=== PATIENT | male | born 1940 | race Caucasian/White ===

== ENCOUNTER 2023-10-11 08:17 | Emergency (ER) | payer MEDICARE, OTHER, SELFPAY ==
[2023-10-11] VITALS (11 sets, daily range): BP systolic 149–187; BP diastolic 68–90; PULSE 66–72; RESP 16–24; TEMP 36.5–37; O2SAT 96–99; BMI 25.8
--- NOTE | 2023-10-11 08:29 | ED.GENADULT ---
HPI - General Adult General Chief complaint: Dizziness Stated complaint: lost balance twice Time Seen by Provider: 10/11/23 08:23 History of Present Illness HPI narrative: 82-year-old male with history of hypertension, BPH presents by private vehicle from home for lightheaded sensation and an off-balance feeling earlier this morning. Patient states that he woke up at approximately 1:30 a.m. this morning and felt like everything was spinning and he was off balance. He went back to bed, but when he woke up this morning he felt lightheaded and like he was ?out of it. He decided to present for evaluation. at bedside states that patient has speech, gait, mannerisms all appear to be normal to her. Related Data Home Medications Medication Instructions Recorded Confirmed famotidine 20 mg tablet 20 mg PO ONCE PM 10/11/23 10/11/23 finasteride 5 mg tablet 5 mg PO DAILY 10/11/23 10/11/23 losartan 100 mg tablet 100 mg PO DAILY 10/11/23 10/11/23 lovastatin 20 mg tablet 20 mg PO QPM 10/11/23 10/11/23 omeprazole 10 mg capsule,delayed 10 mg PO DAILY 10/11/23 10/11/23 release trazodone 50 mg tablet 50 mg PO ONCE PM 10/11/23 10/11/23 Previous Rx's Medication Instructions Recorded aspirin 81 mg capsule 81 mg PO DAILY #30 caps 10/11/23 clopidogrel 75 mg tablet (Plavix) 75 mg PO DAILY #21 tabs 10/11/23 Allergies Allergy/AdvReac Type Severity Reaction Status Date / Time amoxicillin [From Augmentin] Allergy Verified 10/11/23 08:30 clavulanic acid Allergy Verified 10/11/23 08:30 [From Augmentin] Penicillins Allergy Verified 10/11/23 08:30 Review of Systems Review of Systems Narrative: Negative except as noted above Patient History Social History Smoking Status: Former smoker Exam Initial Vital Signs Initial Vital Signs: Vital Signs Pulse Rate 72 10/11/23 08:30 Respiratory Rate 18 10/11/23 08:30 Blood Pressure 184/87 H 10/11/23 08:30 Pulse Oximetry 99 10/11/23 08:30 Oxygen Delivery Method Room Air 10/11/23 08:30 Const: Awake, alert, no acute distress, nontoxic appearing Eyes: PERRL, EOMI, conjunctiva normal ENT: Atraumatic, dentition normal, mucous membranes moist, right-sided cochlear implant Cardiac: regular rate, regular rhythm RESP: unlabored, clear bilaterally, no wheezing GI: Atraumatic, soft, nontender, nondistended, no rebound, no guarding MSK: Atraumatic, full range of motion, pulses equal Skin: Warm, Dry, intact, no rashes Neuro: AO x3, CN II-XII grossly intact, no sensory deficit, no motor deficits, gait normal, coordination normal Psych: affect normal, mood normal, not suicidal, not homicidal Course Orders Ordered: ED Orders 10/11/23 08:34 CBC Auto Diff [Complete Blood Count AUTO DIFF] Stat CMP [Comprehensive Metabolic Panel] Stat MAG [Magnesium] Stat Troponin & CK Cardiac Panel Stat 10/11/23 08:43 CT head/brain wo con Stat Chest [XR chest 1V] Stat 10/11/23 09:25 UA Complete [Urinalysis and Microscopic] Stat 10/11/23 09:37 CT angio head and neck Stat EKG-12 Lead Stat Vital Signs Vital signs: Vital Signs - 8 hr 10/11/23 08:30 10/11/23 08:37 10/11/23 08:37 Temperature 97.7 F Pulse Rate 72 68 Respiratory Rate 18 19 Blood Pressure 184/87 H Pulse Oximetry 99 97 Oxygen Delivery Method Room Air 10/11/23 08:37 10/11/23 08:59 10/11/23 08:59 Temperature Pulse Rate 70 Respiratory Rate 24 Blood Pressure 187/82 H 149/68 H Pulse Oximetry 97 Oxygen Delivery Method 10/11/23 09:00 10/11/23 09:01 10/11/23 09:01 Temperature Pulse Rate 67 67 Respiratory Rate 23 24 Blood Pressure 185/74 H Pulse Oximetry 97 96 Oxygen Delivery Method 10/11/23 09:30 10/11/23 09:30 10/11/23 09:53 Temperature Pulse Rate 66 70 Respiratory Rate 20 19 Blood Pressure 156/73 H Pulse Oximetry 97 97 Oxygen Delivery Method 10/11/23 09:53 10/11/23 10:00 10/11/23 10:00 Temperature Pulse Rate 67 Respiratory Rate Blood Pressure 164/90 H 158/73 H Pulse Oximetry 98 Oxygen Delivery Method 10/11/23 10:30 10/11/23 10:30 10/11/23 10:55 Temperature Pulse Rate 67 67 Respiratory Rate 22 16 Blood Pressure 152/77 H Pulse Oximetry 98 97 Oxygen Delivery Method 10/11/23 10:55 10/11/23 11:44 Temperature 98.6 F Pulse Rate 69 Respiratory Rate 24 Blood Pressure 155/79 H 168/86 H Pulse Oximetry 97 Oxygen Delivery Method Room Air Medical Decision Making Differential Diagnosis Differential Diagnosis: TIA, CVA, vertigo Lab Data 10/11/23 08:34 10/11/23 08:34 Labs: Lab Results 10/11/23 10/11/23 Range/Units 08:34 09:25 WBC 11.1 H (4.5-11.0) X10^3/uL RBC 4.80 (4.5-5.9) X10^6/uL Hgb 15.2 (13.5-17.5) g/dL Hct 44.9 (41-53) % MCV 93.7 (80-100) fL MCH 31.6 (26-34) PG MCHC 33.8 (30-36) % RDW 14.0 (11.6-14.8) % Plt Count 407 H (150-400) X10^3/uL Neut % (Auto) 65.9 (50-75) % Lymph % (Auto) 20.7 L (25-40) % [place] % (Auto) 10.8 (3-14) % Eos % (Auto) 2.0 (2-4) % Baso % (Auto) 0.6 (0-2) % Neut # (Auto) 7300 H (4322-9804) /uL Lymph # (Auto) 2300 (4750-1573) /uL [place] # (Auto) 1200 H (0-900) /uL Eos # (Auto) 200 (0-450) /uL Baso # (Auto) 100 (0-100) /uL Sodium 134 L (137-145) mmol/L Potassium 4.3 (3.4-5.1) mmol/L Chloride 101 (98-107) mmol/L Carbon Dioxide 25 (22-32) mmol/L BUN 13 (9-20) mg/dL Creatinine 0.77 (0.66-1.25) mg/dL Estimated GFR > 60 (>60) mL/min BUN/Creatinine Ratio 16.9 (6-22) Glucose 111 H (80-110) mg/dL Calcium 9.5 (8.4-10.2) mg/dL Magnesium 2.0 (1.6-2.3) mg/dL Total Bilirubin 1.1 (0.2-1.3) mg/dL AST 32 (17-59) IU/L ALT 24 (<50) IU/L Alkaline Phosphatase 79 (38-126) U/L Total Creatine Kinase 73 (55-170) U/L Troponin I < 0.012 (0.01-0.034) ng/mL Total Protein 7.4 (6.3-8.2) g/dL Albumin 4.3 (3.5-5.0) g/dL Globulin 3.1 (1.7-4.1) g/dL Albumin/Globulin Ratio 1.4 (1.0-2.8) Urine Color Yellow Urine Appearance Clear Urine pH 7.5 (4.5-8.0) Ur Specific [place] 1.015 (1.000-1.035) Urine Protein Negative (Negative) Urine Glucose (UA) Negative (Negative) g/dL Urine Ketones Negative (NEGATIVE) Urine Occult Blood Negative (Negative) Urine Nitrate Negative (Negative) Urine Bilirubin Negative (NEGATIVE) Urine Urobilinogen 0.2 (0.2) E.U./dL Ur Leukocyte Esterase Negative (NEGATIVE) Urine RBC None seen (0-5/HPF) Urine WBC None seen (0-5/HPF) Ur Squamous Epith Cells 0-1 /hpf (0-5/HPF) Urine Bacteria None seen (None) Ur Culture Indicated? Cult not indicated MDM Narrative Medical decision making narrative: Patient with vertigo episode earlier this morning and altered feeling today. On my evaluation patient's NIH is 0, his gait is intact, coordination intact, no focal neurologic deficit. We will order labs and CT scan. Laboratory work is reviewed, no acute abnormalities identified. Patient resting comfortably in ED bed reading a book. Noncontrast CT of the brain is concerning for possible subacute to chronic infarct in the left thalamic region, however there is noted to be artifact from cochlear implant. We will order CT angio. CT angio shows less than 50% stenosis of the bilateral internal carotid arteries. There is noted to be long segment stenosis of the left common carotid artery. Discussed findings with radiologist. Based on patient's clinical picture and exam there does not appear to be an acute infarct, and obtaining an MRI would be very difficult due to cochlear implant. Patient states that his cochlear implant is MRI compatible, however radiologist states that there will be a lot of metallic artifact throughout the picture and it would not be helpful especially given the patient's reported symptoms. Patient and informed of all lab and imaging findings. Patient continues to feel asymptomatic in the exam room. He states that he is a follow up appointment with his primary care physician within a week and we will discuss further planning at that time. In the interim patient to be started on daily aspirin and Plavix. ED return precautions discussed at bedside. Patient expressed understanding of the plan and is in agreement at this time. All questions answered at the time of discharge. Discharge Plan Departure Patient Disposition: Home Clinical Impression: Dizziness Instructions: DI for Dizziness-Nonvertigo Activity Restrictions/Additional Instructions: Your laboratory work today was normal, your brain CT indicated that at some point you may have had a small stroke on the left side of your brain. Today we are unable to get an MRI due to scatter artifact from the cochlear implant. Take aspirin and Plavix every day for 3 weeks, and then continue just baby aspirin daily. I recommend following up with a neurologist. MPRESSION: 1. Small area of hypoattenuation in the left thalamus/posterior limb of the left internal capsule is suspicious for a small subacute to chronic infarct, although streak artifact is present at this level and artifactual hypoattenuation cannot be entirely excluded. Recommend correlation with clinical symptoms and any prior imaging if available. 2. Mild chronic microvascular ischemic changes. 3. Right cochlear implant. IMPRESSION: 1. CTA head demonstrates no focal filling defect or stenosis or occlusion or aneurysm. 2. Normal variant anatomy in which the distal left vertebral artery is diminutive, the basilar artery is fairly diminutive, and both posterior cerebral arteries arise as origins off the anterior circulation. 3. The bilateral internal carotid arteries have proximal stenosis secondary to soft plaque, which by NASCET criteria are less than 50%. 4. 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 The appearance of both the left common carotid and internal carotid artery may indicate remote thrombosed dissection or plaque from atherosclerosis. Prescriptions: New aspirin 81 mg capsule 81 mg PO DAILY Qty: 30 0RF clopidogrel [Plavix] 75 mg tablet 75 mg PO DAILY Qty: 21 0RF No Action famotidine 20 mg tablet 20 mg PO ONCE PM aristeodone 50 mg tablet 50 mg PO ONCE PM omeprazole 10 mg capsule,delayed release(DR/EC) 10 mg PO DAILY lovastatin 20 mg tablet 20 mg PO QPM losartan 100 mg tablet 100 mg PO DAILY finasteride 5 mg tablet 5 mg PO DAILY Referrals: Miscellaneous,Doctor, MD [Primary Care Provider] - Stand Alone Forms: Patient Portal/API
--- NOTE | 2023-10-11 08:40 | PC.NURSE ---
Pt reports going to bed last night around 2100 last night and feeling normal. Awoke to use the restroom at approximately 0100 and felt dizzy, lightheaded and off balance. Pt went back to bed, woke up this morning and still felt off. confirmed timeline. FAST negative. Pt a&ox4. [employer] intact. Pt denies cp, sob, fever, n/v/d. Denies pain. Pt ambulated with steady gait and answers all questions appropriately. Dr Menon at beside during triage.
--- NOTE | 2023-10-11 08:43 | DI.RAD.S_ITS ---
PROCEDURE: XR CHEST 1V INDICATIONS: LIGHTHEADEDNESS/GEN WEAKNESS TECHNIQUE: One view of the chest was acquired. COMPARISON: None. FINDINGS: Surgical changes and devices: None. Lungs and pleura: Lungs are clear. No pleural effusions or pneumothorax. Mediastinum: Mediastinal contours appear normal. Heart size is normal. Bones and chest wall: No suspicious bony lesions. Overlying soft tissues appear unremarkable. IMPRESSION: No evidence acute pulmonary process. Dictated by: Arjun Umaña M.D. on 10/11/2023 at 9:05 Approved by: Arjun Umaña M.D. on 10/11/2023 at 9:05
--- NOTE | 2023-10-11 08:43 | DI.CT.S_ITS ---
PROCEDURE: CT HEAD/BRAIN WO CON INDICATIONS: OFF-BALANCE AT 1:30AM TECHNIQUE: Noncontrast 4.5 mm thick angled axial sections acquired from the foramen magnum to the vertex, with coronal and sagittal reformats. For radiation dose reduction, the following was used: automated exposure control, adjustment of mA and/or kV according to patient size. COMPARISON: None. FINDINGS: Image quality: Images are mildly degraded by streak artifact related to a right cochlear implant. CSF spaces: Basal cisterns are patent. No extra-axial fluid collections. The ventricles are symmetric in size and shape. Brain: No acute intracranial hemorrhage or mass effect. Subtle hypoattenuating area is seen in the region of the left thalamus and left posterior internal capsule that could represent a subacute infarct. There is mild cerebral volume loss for age, with resultant ventricular and sulcal prominence. There are mild periventricular and deep white matter chronic small vessel ischemic changes. There is intracranial internal carotid artery atherosclerosis. Skull and face: Calvarium and visualized facial bones appear intact, without suspicious lesions. Sinuses: The visualized paranasal sinuses are clear. Postsurgical changes in the right mastoid region. The mastoid air cells are otherwise clear bilaterally. IMPRESSION: 1. Small area of hypoattenuation in the left thalamus/posterior limb of the left internal capsule is suspicious for a small subacute to chronic infarct, although streak artifact is present at this level and artifactual hypoattenuation cannot be entirely excluded. Recommend correlation with clinical symptoms and any prior imaging if available. 2. Mild chronic microvascular ischemic changes. 3. Right cochlear implant. Approved by: Zeferino Manzo M.D. on 10/11/2023 at 9:24
[2023-10-11 08:57] LABS: Add Manual Diff / Slide Review NO; Basophils Absolute Auto 100 /uL (0-100); Basophils Percent Auto 0.6 % (0-2); Eosinophils Absolute Auto 200 /uL (0-450); Hematocrit 44.9 % (41-53); Hemoglobin 15.2 g/dL (13.5-17.5); Lymphocytes Absolute Auto 2300 /uL (1100-4500); Lymphocytes Percent Auto 20.7 % (25-40); Mean Corpuscular HGB Conc 33.8 % (30-36); Mean Corpuscular Hemoglobin 31.6 PG (26-34); Mean Corpuscular Volume 93.7 fL (80-100); Monocytes Absolute Auto 1200 /uL (0-900); Monocytes Percent Auto 10.8 % (3-14); Neutrophils Absolute Auto 7300 /uL (1500-7000); Neutrophils Percent Auto 65.9 % (50-75); Platelet Count 407 X10^3/uL (150-400); White Blood Cell Count 11.1 X10^3/uL (4.5-11.0)
[2023-10-11 09:04] LABS: Alanine Aminotransferase 24 IU/L (<50); Albumin 4.3 g/dL (3.5-5.0); Albumin Globulin Ratio 1.4 (1.0-2.8); Alkaline Phosphatase 79 U/L (38-126); Aspartate Aminotransferase 32 IU/L (17-59); BUN Creatinine Ratio 16.9 (6-22); Bilirubin Total 1.1 mg/dL (0.2-1.3); Blood Urea Nitrogen 13 mg/dL (9-20); Calcium 9.5 mg/dL (8.4-10.2); Carbon Dioxide 25 mmol/L (22-32); Chloride 101 mmol/L (98-107); Creatine Kinase 73 U/L (55-170); Estimated Glomerular Filt Rate > 60 mL/min (>60); Globulin 3.1 g/dL (1.7-4.1); Glucose 111 mg/dL (80-110); HEMOLYSIS < 15 (0-50); Potassium 4.3 mmol/L (3.4-5.1); Sodium 134 mmol/L (137-145); Total Protein 7.4 g/dL (6.3-8.2)
[2023-10-11 09:15] LABS: Troponin I < 0.012 ng/mL (0.01-0.034)
--- NOTE | 2023-10-11 09:37 | DI.CT.S_ITS ---
PROCEDURE: CT ANGIO HEAD AND NECK INDICATIONS: POSS Left INFARCT, HEAD/NECK EVAL TECHNIQUE: After the administration of intravenous contrast, 1 mm thick sections acquired from the aortic arch through the [place]. 3-dimensional lnbdcst-ixarcrzpm-cddwvwowge (MIP) and/or volume rendering reformats were acquired of the central intracranial vasculature and neck separately. For radiation dose reduction, the following was used: automated exposure control, adjustment of mA and/or kV according to patient size. COMPARISON: [facility], CT, CT HEAD/BRAIN WO [facility], 10/11/2023, 8:52. FINDINGS: Image quality: Diagnostic. BRAIN: CSF spaces: Ventricles are normal in size and shape. Basal cisterns are patent. No extra-axial fluid collections. Brain: No significant abnormality of the brain can be seen. Skull and face: Calvarium and facial bones appear intact, without suspicious lesions. Orbits appear normal. Sinuses: Sinuses and mastoids are clear. HEAD CT ANGIOGRAPHY: Anterior circulation: Intracranial internal carotid arteries are normal in size and flow. The flow within the paired anterior cerebral arteries is normal and symmetric. The flow within the middle cerebral arteries is normal and symmetric. The anterior communicating artery is seen. No aneurysms are seen. Posterior circulation: Diminutive V4 segment of the left vertebral artery. Right vertebral artery is dominant. The basilar artery is a fairly diminutive vessel secondary to the presence of bilateral origins of the posterior cerebral arteries off the anterior circulation. Flow within the posterior cerebral arteries is normal and symmetric. No aneurysms are seen. NECK CT ANGIOGRAPHY: Carotid system: The great vessels demonstrate a conventional anatomy as they arise from the aortic arch. The origins of the common carotid arteries appear patent. There is a fairly long segment less than or equal to 50% stenosis of the left common carotid artery with soft plaque. The bifurcation regions are both widely patent. There is soft plaque present in the proximal left internal carotid artery which narrows the cross-sectional area by greater than 60%. However, by NASCET criteria, the stenosis is less than 50%. There is soft plaque in the proximal left internal carotid artery which is definitely less than 50%. There is also soft plaque in the left common carotid artery which results in a stenosis of in the neighborhood of 50% by cross-sectional area. Based on the appearance of the left common carotid and internal carotid arteries, cannot exclude remote thrombosed dissection. Posterior circulation: The proximal bilateral vertebral arteries are patent. The right vertebral artery is somewhat dominant. The distal left vertebral artery is diminutive. The basilar artery is diffusely small, secondary to origin of the bilateral posterior cerebral arteries off the anterior circulation. Soft tissues: Visualized neck soft tissues demonstrate no suspicious abnormalities. Bones: No suspicious bony lesions. Visualized cervical spine appears normally aligned. IMPRESSION: 1. CTA head demonstrates no focal filling defect or stenosis or occlusion or aneurysm. 2. Normal variant anatomy in which the distal left vertebral artery is diminutive, the basilar artery is fairly diminutive, and both posterior cerebral arteries arise as origins off the anterior circulation. 3. The bilateral internal carotid arteries have proximal stenosis secondary to soft plaque, which by NASCET criteria are less than 50%. 4. 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 The appearance of both the left common carotid and internal carotid artery may indicate remote thrombosed dissection or plaque from atherosclerosis. Comment: If suspect acute infarct, recommend brain MRI. Any quantitative measurements of stenosis were performed using NASCET criteria. Dictated by: Arjun Umaña M.D. on 10/11/2023 at 10:11 Approved by: Arjun Umaña M.D. on 10/11/2023 at 10:27
[2023-10-11 09:39] LABS: Appearance Urine UA CLEAR; Bilirubin Urine UA NEGATIVE (NEGATIVE); Color Urine UA YELLOW; Glucose Urine UA NEGATIVE (Negative); Ketones Urine UA NEGATIVE (NEGATIVE); Leukocyte Esterase Urine UA NEGATIVE (NEGATIVE); Nitrite Urine UA NEGATIVE (Negative); Occult Blood Urine UA NEGATIVE (Negative); Protein Urine UA NEGATIVE (Negative); Specific Gravity Urine UA 1.015 (1.000-1.035); Urobilinogen Urine UA 0.2 E.U./dL (0.2); pH Urine UA 7.5 (4.5-8.0)
[2023-10-11 09:52] LABS: RBC Urine None Seen (0-5/HPF)
[2023-10-11 09:53] LABS: Bacteria Urine None Seen; Culture Indicated Urine Cult Not Indicated; Squamous Epithelial Cell Urine 0-1 /HPF (0-5/HPF); WBC Urine None Seen (0-5/HPF)
== END 2023-10-11 11:45 | disposition home or self-care (01) ==
PROVIDERS: Emergency Provider Emergency Medicine
DX: R42 Dizziness and giddiness (principal); Z87.891 Personal history of nicotine dependence
CPT/HCPCS: 36415; 70450; 70496; 70498; 71045; 80053; 81001; 82550; 83735; 84484; 85025; 93005; 99284; Q9967

== ENCOUNTER 2024-01-12 13:31 | Emergency (ER) | payer MEDICARE, OTHER, SELFPAY ==
[2024-01-12] VITALS (11 sets, daily range): BP systolic 145–194; BP diastolic 73–92; PULSE 64–79; RESP 15–31; TEMP 36–36.6; O2SAT 94–98; BMI 26.5
--- NOTE | 2024-01-12 13:46 | DI.RAD.S_ITS ---
PROCEDURE: XR CHEST 1V INDICATIONS: chest pain TECHNIQUE: One view of the chest was acquired. COMPARISON: [facility], CR, XR CHEST 1V, 10/11/2023, 8:48. FINDINGS: Surgical changes and devices: None. Lungs and pleura: Lungs are clear. No pleural effusions or pneumothorax. Mediastinum: Mediastinal contours appear normal. Heart size is normal. Bones and chest wall: No suspicious bony lesions. Overlying soft tissues appear unremarkable. IMPRESSION: No acute cardiopulmonary abnormality is seen. Dictated by: Marco Michel M.D. on 01/12/2024 at 15:19 Approved by: Marco Michel M.D. on 01/12/2024 at 15:19
[2024-01-12 14:02] LABS: Add Manual Diff / Slide Review NO; Basophils Absolute Auto 100 /uL (0-100); Basophils Percent Auto 0.9 % (0-2); Eosinophils Absolute Auto 300 /uL (0-450); Eosinophils Percent Auto 3.1 % (2-4); Hematocrit 44.6 % (41-53); Hemoglobin 15.2 g/dL (13.5-17.5); Lymphocytes Absolute Auto 3400 /uL (1100-4500); Lymphocytes Percent Auto 29.4 % (25-40); Mean Corpuscular HGB Conc 34.1 % (30-36); Mean Corpuscular Hemoglobin 31.6 PG (26-34); Mean Corpuscular Volume 92.9 fL (80-100); Monocytes Absolute Auto 1400 /uL (0-900); Monocytes Percent Auto 12.7 % (3-14); Neutrophils Absolute Auto 6200 /uL (1500-7000); Neutrophils Percent Auto 53.9 % (50-75); Platelet Count 397 X10^3/uL (150-400); Red Cell Distribution Width 12.6 % (11.6-14.8); White Blood Cell Count 11.5 X10^3/uL (4.5-11.0)
[2024-01-12 14:18] LABS: PTT Partial Thromboplastin Tim 33 SECONDS (25.1-36.5)
[2024-01-12 14:19] LABS: Alanine Aminotransferase 22 IU/L (<50); Albumin 4.3 g/dL (3.5-5.0); Albumin Globulin Ratio 1.3 (1.0-2.8); Alkaline Phosphatase 81 U/L (38-126); Aspartate Aminotransferase 33 IU/L (17-59); BUN Creatinine Ratio 22.7 (6-22); Bilirubin Total 0.7 mg/dL (0.2-1.3); Blood Urea Nitrogen 17 mg/dL (9-20); Calcium 8.8 mg/dL (8.4-10.2); Carbon Dioxide 27 mmol/L (22-32); Chloride 107 mmol/L (98-107); Creatine Kinase 109 U/L (55-170); Estimated Glomerular Filt Rate > 60 mL/min (>60); Globulin 3.2 g/dL (1.7-4.1); Glucose 91 mg/dL (80-110); HEMOLYSIS < 15 (0-50); Lipase 71 U/L (23-300); Potassium 3.9 mmol/L (3.4-5.1); Sodium 137 mmol/L (137-145); Total Protein 7.5 g/dL (6.3-8.2)
[2024-01-12 14:31] LABS: Troponin I < 0.012 ng/mL (0.01-0.034)
--- NOTE | 2024-01-12 15:06 | ED_ITS ---
HPI - General Adult General Chief complaint: Hypertension Stated complaint: high BP Time Seen by Provider: 01/12/24 15:05 Source: patient Mode of arrival: Ambulatory History of Present Illness HPI narrative: 83-year-old male with a history of hypertension and vertigo arriving by private vehicle complaining of dizziness this morning. Says he woke up this morning and when he got up felt unsteady and like things were spinning. This is not accompanied by headache vomiting focal numbness or weakness chest pain or shortness of breath. He checked his blood pressure and noticed it was high. Patient is concerned about this as well. He is on blood pressure medications and his blood pressure is typically well controlled. Had a previous visit for vertigo in September of 2023. Workup at that time was reassuring. Patient says that his blood pressure this morning was 190 systolic. Related Data Home Medications Medication Instructions Recorded Confirmed famotidine 20 mg tablet 20 mg PO ONCE PM 10/11/23 10/11/23 finasteride 5 mg tablet 5 mg PO DAILY 10/11/23 10/11/23 losartan 100 mg tablet 100 mg PO DAILY 10/11/23 10/11/23 lovastatin 20 mg tablet 20 mg PO QPM 10/11/23 10/11/23 omeprazole 10 mg capsule,delayed 10 mg PO DAILY 10/11/23 10/11/23 release trazodone 50 mg tablet 50 mg PO ONCE PM 10/11/23 10/11/23 Previous Rx's Medication Instructions Recorded aspirin 81 mg capsule 81 mg PO DAILY #30 caps 10/11/23 clopidogrel 75 mg tablet (Plavix) 75 mg PO DAILY #21 tabs 10/11/23 meclizine 25 mg tablet 25 mg PO BID PRN dizziness #20 tabs 01/12/24 Allergies Allergy/AdvReac Type Severity Reaction Status Date / Time amoxicillin [From Augmentin] Allergy Verified 10/11/23 08:30 clavulanic acid Allergy Verified 10/11/23 08:30 [From Augmentin] Penicillins Allergy Verified 10/11/23 08:30 Patient History Social History Smoking Status: Former smoker Smoking Status: Former smoker alcohol intake frequency: 0-2 drinks per day Alcohol type: beer Substance Use Type: does not use Exam Initial Vital Signs Initial Vital Signs: Vital Signs Temperature 96.8 F L 01/12/24 13:34 Pulse Rate 79 01/12/24 13:34 Respiratory Rate 20 01/12/24 13:34 Blood Pressure 194/91 H 01/12/24 13:34 Pulse Oximetry 98 01/12/24 13:34 Oxygen Delivery Method Room Air 01/12/24 13:34 Drugs vital signs are hypertensive. Otherwise unremarkable Const Other: Well-appearing in no distress, I note that he is ambulatory with a steady gait in the department [facility] Head: normocephalic and atraumatic Eyes Other: Pupils are equal round and reactive extraocular movements are intact there is no nystagmus Neck Other: Supple no carotid bruits Resp Other: Lungs are clear equal breath sounds Cardio Other: Regular rhythm and rate no murmur rub or gallop Skin Other: Warm and dry Neuro Other: Alert oriented, fluent speech, [id number] is intact no facial droop or asymmetry no weakness Course Orders Ordered: ED Orders 01/12/24 13:46 XR chest 1V Stat EKG-12 Lead Stat 01/12/24 13:48 Complete Blood Count AUTO DIFF Stat Comprehensive Metabolic Panel Stat Lipase Stat Magnesium Stat PTT Partial Thromboplastin Tiburcio Stat Prothrombin Time INR Stat Troponin & CK Cardiac Panel Stat 01/12/24 15:20 CT head/brain wo con Stat Discontinued Medications Aspirin (Aspirin 81 Mg Chew Tab) 324 mg PO NOW ONE Stop: 01/12/24 13:47 Last Admin: 01/12/24 15:23 Dose: Not Given Documented By: BS Vital Signs Vital signs: Vital Signs - 8 hr 01/12/24 13:34 01/12/24 13:43 01/12/24 13:43 Temperature 96.8 F L Pulse Rate 79 75 Respiratory Rate 20 16 Blood Pressure 194/91 H 180/92 H Pulse Oximetry 98 97 Oxygen Delivery Method Room Air Room Air 01/12/24 14:00 01/12/24 14:00 01/12/24 14:29 Temperature Pulse Rate 69 64 Respiratory Rate 23 27 H Blood Pressure 165/80 H Pulse Oximetry 96 95 Oxygen Delivery Method Room Air Room Air 01/12/24 14:30 01/12/24 14:30 01/12/24 15:00 Temperature Pulse Rate 66 Respiratory Rate 24 Blood Pressure 156/79 H 145/77 H Pulse Oximetry 94 Oxygen Delivery Method 01/12/24 15:00 01/12/24 15:35 01/12/24 15:37 Temperature Pulse Rate 65 72 Respiratory Rate 15 31 H Blood Pressure 168/84 H Pulse Oximetry 95 Oxygen Delivery Method 01/12/24 15:37 01/12/24 16:00 01/12/24 16:00 Temperature Pulse Rate 69 68 Respiratory Rate 25 H 21 Blood Pressure 151/73 H Pulse Oximetry 97 96 Oxygen Delivery Method Room Air 01/12/24 16:30 01/12/24 16:30 Temperature Pulse Rate 70 Respiratory Rate 22 Blood Pressure 147/77 H Pulse Oximetry 98 Oxygen Delivery Method Room Air Medical Decision Making Medical Records Medical records narrative: Reviewed ED note from September as noted Lab Data Lab results narrative: CBC i shows a white count of 11.5, otherwise unremarkable. INR is normal, CMP is unremarkable 01/12/24 13:48 01/12/24 13:48 Labs: Lab Results 01/12/24 Range/Units 13:48 WBC 11.5 H (4.5-11.0) X10^3/uL RBC 4.80 (4.5-5.9) X10^6/uL Hgb 15.2 (13.5-17.5) g/dL Hct 44.6 (41-53) % MCV 92.9 (80-100) fL MCH 31.6 (26-34) PG MCHC 34.1 (30-36) % RDW 12.6 (11.6-14.8) % Plt Count 397 (150-400) X10^3/uL Neut % (Auto) 53.9 (50-75) % Lymph % (Auto) 29.4 (25-40) % [place] % (Auto) 12.7 (3-14) % Eos % (Auto) 3.1 (2-4) % Baso % (Auto) 0.9 (0-2) % Neut # (Auto) 6200 (4433-5796) /uL Lymph # (Auto) 3400 (0759-2490) /uL [place] # (Auto) 1400 H (0-900) /uL Eos # (Auto) 300 (0-450) /uL Baso # (Auto) 100 (0-100) /uL PT 11.0 (9.4-12.5) SECONDS INR 1.0 (0.9-1.3) APTT 33 (25.1-36.5) SECONDS Sodium 137 (137-145) mmol/L Potassium 3.9 (3.4-5.1) mmol/L Chloride 107 (98-107) mmol/L Carbon Dioxide 27 (22-32) mmol/L BUN 17 (9-20) mg/dL Creatinine 0.75 (0.66-1.25) mg/dL Estimated GFR > 60 (>60) mL/min BUN/Creatinine Ratio 22.7 H (6-22) Glucose 91 (80-110) mg/dL Calcium 8.8 (8.4-10.2) mg/dL Magnesium 2.0 (1.6-2.3) mg/dL Total Bilirubin 0.7 (0.2-1.3) mg/dL AST 33 (17-59) IU/L ALT 22 (<50) IU/L Alkaline Phosphatase 81 (38-126) U/L Total Creatine Kinase 109 (55-170) U/L Troponin I < 0.012 (0.01-0.034) ng/mL Total Protein 7.5 (6.3-8.2) g/dL Albumin 4.3 (3.5-5.0) g/dL Globulin 3.2 (1.7-4.1) g/dL Albumin/Globulin Ratio 1.3 (1.0-2.8) Lipase 71 (23-300) U/L Imaging Data Chest x-ray: My Impression: Independent review, no acute Radiologist's Impression: Per Radiology, no acute findings CT scan - head: My Impression: Independent review of CT head, no acute findings Radiologist's Impression: No acute findings ECG Data Interpretation: ECG shows normal sinus rhythm at [address] segment changes normal EKG [facility] Narrative Medical decision making narrative: 83-year-old male presenting with an episode of dizziness. He has had an episode of similar symptoms in the past, symptoms improved fairly rapidly, I considered but do not suspect stroke, he had no other neurologic symptoms TIA is also thought less likely. This may be peripheral vertigo. From his description it does sound as though it could very well be vertiginous. Given his reassuring exam I think it is safe for him to be discharged. He has some concerned about his blood pressure he is in fact hypertensive but not symptomatic. Considered getting an MRI but he has a cochlear implant so that was not an option. Discharged home with a prescription for meclizine he is to follow up with his primary care provider regarding his blood pressure discussed monitoring home blood pressures. Discharge Plan Departure Patient Disposition: Home Clinical Impression: Vertigo Activity Restrictions/Additional Instructions: Workup is reassuring. I do not think that you have a dangerous cause for dizziness today. I think it is safe to follow up with her primary care provider for recheck soon. I have sent a prescription for meclizine your pharmacy that you can use as needed for dizziness. If you are having disabling dizziness headaches uncontrolled vomiting chest pain or focal numbness or weakness or other acute symptoms recheck in the emergency department. Check your blood pressures at home as we discussed, you can do this 3 to 5 times a week, record the numbers and follow up with primary care provider Prescriptions: New meclizine 25 mg tablet 25 mg PO BID PRN (Reason: dizziness) Qty: 20 0RF No Action famotidine 20 mg tablet 20 mg PO ONCE PM trazodone 50 mg tablet 50 mg PO ONCE PM omeprazole 10 mg capsule,delayed release(DR/EC) 10 mg PO DAILY lovastatin 20 mg tablet 20 mg PO QPM losartan 100 mg tablet 100 mg PO DAILY finasteride 5 mg tablet 5 mg PO DAILY aspirin 81 mg capsule 81 mg PO DAILY Qty: 30 0RF clopidogrel [Plavix] 75 mg tablet 75 mg PO DAILY Qty: 21 0RF Referrals: Miscellaneous,Doctor, MD [Primary Care Provider] - Stand Alone Forms: Patient Portal/API
--- NOTE | 2024-01-12 15:20 | DI.CT.S_ITS ---
PROCEDURE: CT HEAD/BRAIN WO CON INDICATIONS: dizziness TECHNIQUE: Noncontrast 4.5 mm thick angled axial sections acquired from the foramen magnum to the vertex, with coronal and sagittal reformats. For radiation dose reduction, the following was used: automated exposure control, adjustment of mA and/or kV according to patient size. COMPARISON: [facility], CT, CT ANGIO HEAD AND NECK, 10/11/2023, 9:48. [facility], CR, XR CHEST 1V, 01/12/2024, 14:25. [facility], CT, CT HEAD/BRAIN WO CON, 10/11/2023, 8:52. FINDINGS: Image quality: There is artifact associated with the metallic hardware. Artifact from the metallic hardware is mildly reduced reduced by metal reconstruction algorithm. CSF spaces: Basal cisterns are patent. No extra-axial fluid collections. The ventricles are symmetric in size and shape. Brain: No intracranial bleeds or masses. There is cerebral volume loss for age, with resultant ventricular and sulcal prominence. There are periventricular and deep white matter chronic small vessel ischemic changes. There is intracranial internal carotid artery atherosclerosis. Skull and face: Calvarium and visualized facial bones appear intact, without suspicious lesions. Sinuses: Visualized sinuses and mastoids are clear. IMPRESSION: Limited intracranial study, without acute abnormality identified. Dictated by: Eric Edge M.D. on 01/12/2024 at 14:48 Approved by: Eric Edge M.D. on 01/12/2024 at 14:49
== END 2024-01-12 17:56 | disposition home or self-care (01) ==
PROVIDERS: Emergency Provider Emergency Medicine
DX: R42 Dizziness and giddiness (principal); I10 Essential (primary) hypertension; R07.9 Chest pain, unspecified
CPT/HCPCS: 36415; 70450; 71045; 80053; 82550; 83690; 83735; 84484; 85025; 85610; 85730; 93005; 99284